=== PATIENT | female | born 1980 | race Caucasian/White ===

== ENCOUNTER 2025-01-08 17:26 | Emergency (ER) | payer MEDICAID, SELFPAY ==
[2025-01-08 17:38] VITALS: BP 136/90; PULSE 94; RESP 22; TEMP 36.7; O2SAT 96; BMI 27.4
--- NOTE | 2025-01-08 17:51 | XRR_ITS ---
PROCEDURE INFORMATION: Exam: XR Chest Exam date and time: 01/08/2025 5:53 PM Age: 44 years old Clinical indication: Angina and cough; Additional info: Shortness of breath TECHNIQUE: Imaging protocol: Radiologic exam of the chest. Views: 1 view. COMPARISON: No relevant prior studies available. FINDINGS: Lungs: Unremarkable. No consolidation. Pleural spaces: Unremarkable. No pleural effusion. No pneumothorax. Heart/Mediastinum: Unremarkable. No cardiomegaly. Bones/joints: Unremarkable. XR/XR chest 1V portable [id number] IMPRESSION: No acute findings.
[2025-01-08] MEDS: methylPREDNISolone sod succ 125 mg/2 mL INJ IVP (18:17)
--- NOTE | 2025-01-08 18:17 | ED_ITS ---
HPI - SOB/Dyspnea 2 General: Chief Complaint: Shortness of Breath/Dyspnea Stated Complaint: trouble breathing Time Seen by Provider: 01/08/25 17:49 History of Present Illness: HPI Narrative: 44-year-old female with a history of ast hma/COPD, lupus and tobacco dependence who presents to the emergency room with worsening cough and shortness of breath. She has quite a bit of wheeze on presentation. Tachypneic. Not requiring oxygen. She says she just moved here and she does not have a primary to follow- up with yet. No chest pain. No altered mental status. No nausea or vomiting. No known fevers. Related Data Previous Rx's ?Medication ?Instructions ?Recorded azithromycin 250 mg tablet See Rx Instructions PO .COM PLEX #6 01/08/25 (Zithromax Z-Igor) tabs prednisone 20 mg tablet 60 mg (3 x 20 mg) PO DAILY # 20 tabs 01/08/25 Allergies Allergy/AdvReac Type Severity Reaction Status Date / Time divalproex sodium (From Allergy Unknown Verified 01/08/25 17:44 Depakote) ketorolac (From Toradol) Allergy Unknown Verified 01/08/25 17:44 morphine Allergy Unknown Verified 01/08/25 17:44 Penicillins Allergy Unknown Verified 01/08/25 17:44 hydrocodone AdvReac ADR-Itching Verified 01/08/25 17:44 Review of Systems 2 Narrative: Constitutional symptoms: Negative except as documented in HPI. Skin symptoms: Negative except as documented in HPI. Eye symptoms: Negative except as documented in HPI. ENMT symptoms: Negative except as documented in HPI. Respiratory symptoms: Negative except as documented in HPI. Cardiovascular symptoms: Negative except as documented in HPI. Gastrointestinal symptoms: Negative except as documented in HPI. Genitourinary symptoms: Negative except as documented in HPI. Musculoskeletal symptoms: Negative except as documented in HPI. Neurologic symptoms: Negative except as documented in HPI. Psychiatric symptoms: Negative except as documented in HPI. Endocrine symptoms: Negative except as documented in HPI. Physical Exam 2 Narrative: EXAM NARRATIVE: General: Alert, no acute distress. Skin: Warm, dry. Head: Normocephalic, atraumatic. Neck: Supple, trachea midline. Eye: Extraocular movements are intact. Ears, nose, mouth and throat: Oral mucosa moist. Cardiovascular: Regular rate and rhythm, Normal peripheral perfusion. Respiratory: coarse, scattered wheeze, mild increased wob. tachypnea, breath sounds are equal, Symmetrical chest wall expansion. Gastrointestinal: Soft, Nontender, Non distended Musculoskeletal: Normal ROM, no deformity. Neurological: Alert and oriented, No focal neurological deficit observed. Psychiatric: Cooperative, appropriate mood & affect. Course 2 Vital Signs: Vital signs: Vital Signs Temperature 98.0 F 01/08/25 17:38 Pulse Rate 85 01/08/25 18:51 Respiratory Rate 22 H 01/08/25 18:39 Blood Pressure 121/70 01/08/25 18:47 Pulse Oximetry 97 01/08/25 18:47 Oxygen Delivery Me thod Room Air 01/08/25 18:47 MDM - SOB/Dyspnea Medical Decision Making Differential diagnosis for patient with shortness of breath includes but is not limited to and based on the above HPI, review of systems and physical exam: Pneumonia. Bronchitis. Asthma or COPD with acute exacerbation. Acute coronary syndrome / [place]. Pulmonary embolism. Anxiety. Congestive heart failure. Viral infections including influenza and Covid-19. Atrial fibrillation. Anxiety. Pleural effusion. Pneumothorax. Orders placed to evaluate differential diagnosis based on the above differential, HPI and physical exam Chest x-ray: Flattened diaphragms/hyperexpansion. No obvious focal infiltrates.. This was reviewed and interpreted by myself the emergency room physician. I also reviewed the radiology report. Lab Review: Laboratory results were reviewed and interpreted by myself the emergency room physician. No leukocytosis. No anemia. No renal failure. proBNP is negative. I reviewed the patient's medical record. Reexamination: Patient has improved wheeze. Improved work of breathing. No oxygen requirements. Assessment and plan: COPD with acute exacerbation ?Solu-Medrol and 2 updrafts. - Discharged home - Discussed plan with patient. Answered any questions. - Evaluation and treatment of this problem were appropriate in the emergency setting. Lab Data 01/08/25 18:13 01/08/25 18:13 Labs/Radiology: Radiology Impressions Chest X-Ray 01/08/25 17:51 IMPRESSION: No acute findings. Laboratory Results WBC 8.80 10^3/uL (3.29-11.43) 01/08/25 18:13 RBC 4.47 10^6/uL (3.85-5.65) 01/08/25 18:13 Hgb 14.40 g/dL (11.27-16.99) 01/08/25 18:13 Hct 39.0 % (36-47) 01/08/25 18:13 MCV 87.2 fl (85-98) 01/08/25 18:13 MCH 32.2 pg (27-33) 01/08/25 18:13 MCHC 36.9 g/dL (30-55) 01/08/25 18:13 RDW 13.4 % (12.1-15.1) 01/08/25 18:13 Plt Count 281 10^3/cmm (157-399) 01/08/25 18:13 MPV 10.4 fL (7.4-10.4) 01/08/25 18:13 Neut % (Auto) 64.2 % 01/08/25 18:13 Lymph % (Auto) 26.7 % 01/08/25 18:13 [place] % (Auto) 8.5 % 01/08/25 18:13 Eos % (Auto) 0.0 % 01/08/25 18:13 Baso % (Auto) 0.3 % 01/08/25 18:13 Neut # (Auto) 5.64 10^3/uL (1.8-7.7) 01/08/25 18:13 Lymph # (Auto) 2.4 10^3/uL (0.8-4.8) 01/08/25 18:13 [place] # (Auto) 0.8 10^3/uL (0.2-0.9) 01/08/25 18:13 Eos # (Auto) 0.0 10^3/uL (0.0-0.8) 01/08/25 18:13 Baso # (Auto) 0.0 10^3/uL (0.0-0.1) 01/08/25 18:13 Nucleated RBC % (auto) 0 % 01/08/25 18:13 Nucleated RBCs # 0.0 /100WBC 01/08/25 18:13 Sodium 142 mmol/L (136-145) 01/08/25 18:13 Potassium 4.1 mmol/L (3.5-5.1) 01/08/25 18:13 Chloride 107 mmol/L (98-107) 01/08/25 18:13 Carbon Dioxide 26 mmol/L (22-29) 01/08/25 18:13 Anion Gap 13.1 (5-19) 01/08/25 18:13 BUN 6 mg/dL (6-20) 01/08/25 18:13 Creatinine 0.5 mg/dL (0.5-0.9) 01/08/25 18:13 GFR Calculation 134.0 mL/min (90-130) H 01/08/25 18:13 Glucose 87 mg/dL (65-115) 01/08/25 18:13 Calculated Osmolality 291 mOsm/kg (285-295) 01/08/25 18:13 Lactic Acid 1.5 mmol/L (0.5-2.2) 01/08/25 18:13 Calcium 9.0 mg/dL (8.5-10.5) 01/08/25 18:13 Total Bilirubin 0.3 mg/dL (0.15-1.2) 01/08/25 18:13 AST 12 U/L (0-32) 01/08/25 18:13 ALT 11 U/L (0-33) 01/08/25 18:13 Alkaline Phosphatase 55 U/L (35-105) 01/08/25 18:13 NT-Pro-B Natriuret Pep 123 pg/mL (0-125) 01/08/25 18:13 Total Protein 6.4 g/dL (6.6-8.7) L 01/08/25 18:13 Albumin 3.8 g/dL (3.5-5.2) 01/08/25 18:13 Globulin 2.6 g/dL (1.3-4.6) 01/08/25 18:13 All radiology interpretation(s) finalized by discharge Discharge Plan Discharge Patient Disposition: Home Clinical Impression: COPD with acute exacerbation Condition: Stable Prescriptions: New azithromycin [Zithromax Z-Igor] 250 mg tablet See Rx Instructions .ROUTE .COMPLEX Qty: 6 0RF Rx Instructions: For 250 mg dose pack: take 500 mg today (day 1), then 250 mg for 4 days (days 2-5) prednisone 20 mg tablet 60 mg PO DAILY Qty: 20 0RF Rx Instructions: 3 tabs (60 mg) x 3 days. 2 tabs (40 mg) x 3 days. 1 tab (20 mg) x 3 days. 1/2 tab (10 mg) x 4 days Discharge Orders: Discharge ED (Routine); Ordered 01/08/25 Ordered By: Zuleyka Lovell Patient Instructions: COPD (Chronic Obstructive Pulmonary Disease) (ED), Opioid Safety, Pain Management Activity Restrictions/Additional Instructions: Thank you for choosing [facility] for your healthcare needs today. You have been screened and evaluated and felt safe for discharge. Health conditions do change or evolve sometimes and as such it is important that you follow up with your Primary Doctor to be re checked, 3-5 days is a general good time frame for follow up. You are always welcome to return to the ED for re assessment if your symptoms are worsening or you have new concerns Print Language: Swazi Coding Level of Care Code ED Traffic Rate Clerk for Bri Mcadams
[2025-01-08 18:20] LABS: Basophils % 0.3 %; Lymphocytes # 2.4 10^3/uL (0.8-4.8); Lymphocytes % 26.7 %; Mean Corpuscular HGB Conc 36.9 g/dL (30-55); Mean Corpuscular Hemoglobin 32.2 pg (27-33); Mean Corpuscular Volume 87.2 fl (85-98); Mean Platelet Volume 10.4 fL (7.4-10.4); Monocytes # 0.8 10^3/uL (0.2-0.9); Monocytes % 8.5 %; Neutrophils # 5.64 10^3/uL (1.8-7.7); Neutrophils % 64.2 %; Nucleated Red Blood Cells % 0 %; Platelet Count 281 10^3/cmm (157-399); Red Blood Count 4.47 10^6/uL (3.85-5.65); Red Cell Distribution Width 13.4 % (12.1-15.1)
[2025-01-08 18:35] LABS: Lactic Sepsis W/Reflex 1.5 mmol/L (0.5-2.2)
[2025-01-08] MEDS: ipratropium-albuterol 3 mL Neb INHALATION (18:38)
[2025-01-08] MEDS: albuterol 2.5 mg/3 mL Neb INHALATION (18:38)
[2025-01-08 18:39] VITALS: PULSE 78; RESP 22; O2SAT 97
[2025-01-08 18:46] LABS: Alanine Aminotransferase 11 U/L (0-33); Albumin Level 3.8 g/dL (3.5-5.2); Alkaline Phosphatase 55 U/L (35-105); Anion Gap 13.1 (5-19); Aspartate Amino Transferase 12 U/L (0-32); Blood Urea Nitrogen 6 mg/dL (6-20); Carbon Dioxide 26 mmol/L (22-29); Chloride 107 mmol/L (98-107); Creatinine Clr Calc Pharmacy 140.1933; Globulin 2.6 g/dL (1.3-4.6); Glucose 87 mg/dL (65-115); NT Pro B Type Natriuretic Pept 123 pg/mL (0-125); Osmolality Calculated 291 mOsm/kg (285-295); Potassium 4.1 mmol/L (3.5-5.1); Sodium 142 mmol/L (136-145); Total Bilirubin 0.3 mg/dL (0.15-1.2); Total Protein 6.4 g/dL (6.6-8.7)
[2025-01-08 18:47] VITALS: BP 121/70; PULSE 85; O2SAT 97
[2025-01-08 18:51] VITALS: PULSE 85
[2025-01-08 18:54] LABS: Slide Review Slide Review Perform
[2025-01-08 19:32] VITALS: BP 125/85; PULSE 85; O2SAT 98
== END 2025-01-08 19:33 | disposition home or self-care (01) ==
PROVIDERS: Emergency Provider Emergency Medicine
DX: J44.1 Chronic obstructive pulmonary disease with (acute) exacerbation (principal); M32.9 Systemic lupus erythematosus, unspecified; Z87.891 Personal history of nicotine dependence
CPT/HCPCS: 71045; 80053; 83605; 83880; 85025; 94640; 96374; 99285; J2919; J7613; J9999

== ENCOUNTER 2025-01-20 08:13 | Oncology outpatient (recurring) (ONCR) | payer MEDICAID, SELFPAY ==
[2025-01-20 09:44] LABS: Basophils # 0.1 10^3/uL (0.0-0.1); Basophils % 0.4 %; Hematocrit 46.8 % (36-47); Lymphocytes # 1.9 10^3/uL (0.8-4.8); Lymphocytes % 10.2 %; Mean Corpuscular HGB Conc 37.2 g/dL (30-55); Mean Corpuscular Hemoglobin 31.9 pg (27-33); Mean Corpuscular Volume 85.7 fl (85-98); Mean Platelet Volume 10.2 fL (7.4-10.4); Monocytes # 0.8 10^3/uL (0.2-0.9); Monocytes % 4.5 %; Neutrophils # 15.46 10^3/uL (1.8-7.7); Neutrophils % 83.2 %; Nucleated Red Blood Cells % 0 %; Platelet Count 319 10^3/cmm (157-399); Red Blood Count 5.46 10^6/uL (3.85-5.65); Red Cell Distribution Width 13.1 % (12.1-15.1); White Blood Count 18.59 10^3/uL (3.29-11.43)
[2025-01-20 10:06] LABS: Alanine Aminotransferase 28 U/L (0-33); Albumin Level 4.3 g/dL (3.5-5.2); Alkaline Phosphatase 57 U/L (35-105); Anion Gap 17.4 (5-19); Aspartate Amino Transferase 17 U/L (0-32); Blood Urea Nitrogen 13 mg/dL (6-20); Carbon Dioxide 25 mmol/L (22-29); Chloride 97 mmol/L (98-107); Creatinine Clr Calc Pharmacy 131.2219; Ferritin 213 ng/mL (15-150); Globulin 2.8 g/dL (1.3-4.6); Glomerular Filtration Rate 108.6 mL/min (90-130); Glucose 87 mg/dL (65-115); Iron 114 ug/dL (37-145); Lactate Dehydrogenase 126 U/L (135-214); Osmolality Calculated 279 mOsm/kg (285-295); Percent Saturation 35.1 % (20-50); Potassium 4.4 mmol/L (3.5-5.1); Sodium 135 mmol/L (136-145); Total Bilirubin 0.5 mg/dL (0.15-1.2); Total Iron Binding Capacity 324 mcg/dl; Total Protein 7.1 g/dL (6.6-8.7); Unsaturated Iron Binding 210 ug/dL (112-347)
[2025-01-23 12:44] LABS: Erythropoietin 3.4 mIU/mL (2.6-18.5)
== END 2025-01-26 23:59 | disposition home or self-care (01) ==
PROVIDERS: Visit Provider Internal Medicine
DX: D75.1 Secondary polycythemia (principal); M32.9 Systemic lupus erythematosus, unspecified; J44.9 Chronic obstructive pulmonary disease, unspecified; J82.83 Eosinophilic asthma; Z90.89 Acquired absence of other organs
CPT/HCPCS: 36415; 80053; 82668; 82728; 83540; 83550; 83615; 85025; 86140; 99204

== ENCOUNTER 2025-02-21 12:03 | Emergency (ER) | payer MEDICAID, SELFPAY ==
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
--- OUTSIDE RECORDS SUMMARY | 2025-02-21 12:11 | XMS_ITS | Patient Health Record ---
Author Organization [facility] Address [address] [place], [place] [address] Care Team Providers Care Government Sales Manager Name Role Phone [facility] Primary Care Pr ovider Unavailable Lizy Bojorquez Unavailable [phone] Allergies Allergen (clinical drug ingredient) Drug/Non Drug Allergy documented on EMR Reaction Allergy Type Onset Date Status Keflex anaphylaxis Drug Allergy Activ e Reason For Referral No Information Medications Medication SIG (Take, Route, Frequency, Duration) Notes Start Date End Date Status Prazosin HCl 1 MG 1 capsule Orally qd for 30 days 05/05/2016 Active Xanax 2 MG 1 tablet Orally Twic e a day for 30 days 05/05/2016 Active Venlafaxine HCl 75 MG 1 tablet with food Orally Twice a day for 30 days 05/05/2016 Active hydrOXYzine HCl 50 MG 1 tablet as needed Orally every 6 hrs Not-Taking Gemfibrozil 600 MG 1 tablet Orally Twic e a day for 30 day(s) 04/07/2016 Active Melatonin 3 MG 1 tablet at bedtime as needed with food Orally Once a day Not-Taking Gabapentin 300 MG 1 capsule Orally Thr ee times a day Not-Taking traZODone HCl 150 MG 1 tablet at bedtime as needed Orally Once a day for 30 days Not-Taking Xanax 2 MG 1/2 tablet Orally Tw ice a day for 30 days 12/20/2015 Not-Taking VESIcare 5 MG 1 tablet Orally Once a day Active Meloxicam 15 MG 1 tablet Orally Once a day for 30 day(s) 04/06/2016 Active chlorproMAZINE HCl 50 MG 1 tablet Orally 1 bid, 2 q hs for 30 days 05/05/2016 Active Zofran 8 MG 1 tablet Orally Once a day for 30 day(s) 05/05/2016 Active FLUoxetine HCl 20 MG 1 capsule in the morning Orally Once a day for 30 days Not-Taking Promethazine HCl 25 MG 1 tablet as neede d Orally every 6 hrs for 30 days Active Haloperidol 2 MG 1 tablet Orally four times a day for 30 days Not-Taki ng clonazePAM 1 MG 1 tablet Orally thre e times a day for 30 days 11/03/2015 Not-Taki ng Mirtazapine 45 MG 1 tablet before bedt rose in the evening Orally Once a day for 30 days 05/05/2016 Active Social History Tobacco Use: Social History Observation Description Date Details (start date - stop date) Current Smoker NA - NA Tobacco Use (OLD): Question Answer Notes Are you a: current smoker How often do you smoke cigarettes? every day How many cigarettes a day do you smoke? 21-30 How soon after you wake up do you smoke your fir st cigarette? within 5 min Are you interested in quitting? Not ready to landen t Additional Findings: Tobacco User Chain smoker Problems Problem Type SNOMED Code ICD Code Onset Dates Problem Status W/U Status Risk Notes Problem 805454753 Tobacco use (Z72.0) Active confirmed Problem 802104514 Hypertriglycerid emia (E78.1) Active confirmed Problem 18033280 Hypertension (I10) Active confirmed Problem 43771622 Neck pain (M54.2) Active confirmed Problem 754869753 Back pain (M54.9) Active confirmed Problem 56874144 Fibromyalgia (M79.7) Active confirmed Problem 67552003 Bipolar disorder (F31.9) Active confirmed Problem 74882266 PTSD (post-traum atic stress disorder) (F43.10) Active confirmed Problem 853792240 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) Active confirmed Problem 206336185 Endometriosis (N80.9) Active confirme d Problem 130318428 Unspecified mood [affective] disorder (F39) Active confirmed Plan Of Treatment No Information Insurance Providers Payer Name Payer Address Payer Phone Subscriber Number Group Number Insured Name Patient Relationship to Insured Coverage Start Date Coverage End Date [facility] MEDICA[facility] [id number] [address] [place] [phone] [id number] Jennifer Church Self - patient is the insured 6 Medications Administered Medication Instructions Date of Administration Dosage Notes Depo-Provera 150 mg/mL 10/28/2015 150 mg Medical (General) History Medical History History ICD Code endometriosis fibromyalgia OA osteoporosis PTSD htn borderline personality disorder Surgical History Surgery Date(Month/Year) tonsillectomy 1982 Hospitalization History Reason Date(Month/Year) mental 08/2015
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
--- OUTSIDE RECORDS SUMMARY | 2025-02-21 12:11 | XMS_ITS | Encounter Summary ---
Author Organization [facility] Address [address] [place] [address] Care Team Providers Care Car Ferry Master Name Role Phone Jennifer Millan MD Primary Care Provider [phone] Reason for Visit * Reason Onset Date Comments Question 09/10/2023 Encounter Details Date Type Department Care Team (Late st Contact Info) Description 09/10/2023 Telephone [facility] Pulmonology-[facility] Jeff[place] [address] [place] [address] Call, [address] NP [address] [place] [address] Question Social History Tobacco Use Types Packs/Day Years Used Date Smoking Tobacco: Every Day Cigarettes 2 32 Passive Smoke Exposure: Past Smokeless Tobacco: Never Comments:Started around age 10. Alcohol Use Standard Drinks/Week Comments Not Currently 0 (1 standard drink = 0.6 oz [...] on file documented as of this encounter Miscellaneous Notes * Telephone Encounter - Luisito Pebbles Padgett - 09/10/2023 2:07 PM CST [facility] Call Center [address] Call (Provider) MESSAGE Pt returning call to staff. Letting them know that she is only using room air with her concentrator. Does not have oxygen. Would like to have actual oxygen tanks [facility] Senior Brand Manager: REANNA DarnellR K LEADER documented in this encounter Plan of Treatment Upcoming Encounters Date Type Department Care Team (Late st Contact Info) Description 02/24/2025 3:00 PM CDT Confidential [facility] Psychiatry- [place] [address] [place] [address] Yandel Torrez MD [address] [facility] [address] [place] [address] 03/12/2025 11:30 AM CDT Video Visit [facility] Pulmonology [address] [place] [address] Samina Pdeerson, SADDLE AND SIDE WIRE STITCHER [address] [place] [address] 06/29/2025 11:00 AM TRACK LEADER Telephone Check Up [facility] Gastroenterology- [place] [address] [place] [address] Nani Chavarria, PERSONAL SERVICE WORKERS [address] [facility] [address] [place] [address] documented as of this encounter Visit Diagnoses Not on filedocumented in this encounter Care Teams Car Ferry Master Relationship Specialty Start Date End Date Jennifer Millan MD [address] [facility] [address] [place] [address] PCP - General Internal Medicine 10/22/23 11/22/23 documented as of this encounter
--- OUTSIDE RECORDS SUMMARY | 2025-02-21 12:11 | XMS_ITS | Encounter Summary ---
Author Organization [facility] Address [address] [place] [address] Care Team Providers Care Valet Cashier Name Role Phone Unavailable Primary Care Provider Unavailabl e Reason for Visit * Reason Onset Date Comments Pharmacy Change 02/06/2025 Encounter Details Date Type Department Care Team (Late st Contact Info) Description 02/06/[address] [facility] Psychiatry- [address] [place] [address] Yandel Torrez MD [address] [place] [address] Pharmacy Change Social History Tobacco Use Types Packs/Day Years [...] encounter Miscellaneous Notes * Telephone Encounter - Shavon Mckinley - 02/06/2025 10:53 AM CDT Can you please send all my scripts starting next month to the [facility] on [address] [place] please in [facility] thank you having issues with this one down here Arnie will pick them up documented in this encounter Plan of Treatment Upcoming Encounters Date Type Department Care Team (Late st Contact Info) Description 02/24/2025 3:[address] [facility] Psychiatry- [place] [address] [facility] [facility] [address] [place] [address] Yandel Torrez MD [address] [facility] [address] [place] [address] 03/12/2025 11:30 AM CDT Video Visit [facility] Pulmonology [address] [place] [address] [place] [address] Samina Pederson, PATTERN LAYOUT WORKER [address] [place] [address] 06/29/2025 11:00 AM SHIPPING POINT INSPECTOR Telephone Check Up [facility] Gastroenterology- [place] [address] [place] [address] Nani Chavarria, MARKETING TRAINEE [address] [facility] [address] [place] [address] documented as of this encounter Visit Diagnoses Not on filedocumented in this encounter
--- OUTSIDE RECORDS SUMMARY | 2025-02-21 12:11 | XMS_ITS | Encounter Summary ---
Author Organization [facility] Address [address] [place] [address] Care Team Providers Care Tint Layer Name Role Phone Unavailable Primary Care Provider Unavailabl e Encounter Details Date Type Department Care Team (Late st Contact Info) Description 11/10/2024 Telephone [facility] [place] [address] [facility] [address] [place] [address] Katheryn Bynum MD [address] [employer] [address] [place] [address] Social History Tobacco Use Types Packs/Day Years [...] encounter Miscellaneous Notes * Telephone Encounter - Gloria Small RN - 11/10/2024 10:34 AM CDT ----- Message from Ally sent at 11/10/2024 10:23 AM CDT ----- LVT pt Pt called - stating she has changed providers now to [facility]. And stated she needed somewhere closer since it is hard to make drive to [facility]. Pt stated she needs all medical records sent to that facility. I did go ahead and get her over to Medical Records Department but here is Fax number to [facility] if you need it: FAX: [phone]. +++++++++++++++++++ Noted. Will let LVT know above. Med records will need to take care of record release. documented in this encounter Plan of Treatment Upcoming Encounters Date Type Department Care Team (Late st Contact Info) Description 02/24/2025 3:00 PM CDT Confidential [facility] Psychiatry- [place] [address] [address] [place] [address] Yandel Torrez MD [address] [facility] [address] [place] [address] 03/12/2025 11:30 AM CDT Video Visit [facility] Pulmonology [address] [place] [address] Samina Pederson APRN [address] [place] [address] 06/29/2025 11:00 AM IT SECURITY ENGINEER Telephone Check Up [facility] Gastroenterology- [place] [address] [facility] [address] [place] [address] Nani Chavarria, GLEN [address] [facility] [address] [place] [address] documented as of this encounter Visit Diagnoses Not on filedocumented in this encounter
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
[2025-02-21 12:21] VITALS: BP 154/99; PULSE 84; RESP 18; TEMP 36.7; O2SAT 98; BMI 36.2
[2025-02-21 12:48] LABS: Hematocrit 40.6 % (36-47); Hemoglobin 15.00 g/dL (11.27-16.99); Mean Corpuscular HGB Conc 36.9 g/dL (30-55); Mean Corpuscular Hemoglobin 32.6 pg (27-33); Mean Corpuscular Volume 88.3 fl (85-98); Nucleated Red Blood Cells % 0 %; Platelet Count 306 10^3/cmm (157-399); Red Blood Count 4.60 10^6/uL (3.85-5.65); White Blood Count 9.26 10^3/uL (3.29-11.43)
[2025-02-21 12:57] LABS: HCG, Serum Qual Negative (Negative)
[2025-02-21 13:05] LABS: Alanine Aminotransferase 20 U/L (0-33); Albumin Level 4.0 g/dL (3.5-5.2); Alkaline Phosphatase 63 U/L (35-105); Anion Gap 16.0 (5-19); Aspartate Amino Transferase 16 U/L (0-32); Blood Urea Nitrogen 6 mg/dL (6-20); Calcium 9.1 mg/dL (8.5-10.5); Carbon Dioxide 22 mmol/L (22-29); Chloride 104 mmol/L (98-107); Creatinine Clr Calc Pharmacy 161.1673; Globulin 2.8 g/dL (1.3-4.6); Glucose 80 mg/dL (65-115); Lipase 25 U/L (13-60); Osmolality Calculated 283 mOsm/kg (285-295); Potassium 4.0 mmol/L (3.5-5.1); Sodium 138 mmol/L (136-145); Total Protein 6.8 g/dL (6.6-8.7)
--- NOTE | 2025-02-21 13:27 | CTR_ITS ---
PROCEDURE INFORMATION: Exam: CT Abdomen And Pelvis With Contrast Exam date and time: 02/21/2025 1:45 PM Age: 44 years old Clinical indication: Abdominal pain; Generalized; Prior surgery; Surgery date: 6+ months; Surgery type: Gb; Additional info: Abd pain TECHNIQUE: Imaging protocol: Computed tomography of the abdomen and pelvis with contrast. Radiation optimization: All CT scans at this facility use at least one of these dose optimization techniques: automated exposure control; mA and/or kV adjustment per patient size (includes targeted exams where dose is matched to clinical indication); or iterative reconstruction. Contrast material: OMNI 350; Contrast volume: 100 ml; Contrast route: INTRAVENOUS (IV); COMPARISON: CR (CHEST, ) 01/08/2025 5:53 PM RADIATION DOSE METRICS: Total DLP (mGy-cm): 923.97 FINDINGS: Lungs: Visualized portions of the lungs are clear. No effusions. Liver: Unremarkable. No mass. Gallbladder and biliary ducts: Gallbladder is surgically absent. Pancreas: Normal. No ductal dilation. Spleen: Normal. No splenomegaly. Adrenal glands: Normal. No mass. Kidneys and ureters: Normal. No hydronephrosis. Stomach and bowel: Unremarkable. No obstruction. No mucosal thickening. Appendix: No evidence of appendicitis. Intraperitoneal space: Unremarkable. No free air. No significant fluid collection. Vasculature: Unremarkable. No abdominal aortic aneurysm. Lymph nodes: Unremarkable. No enlarged lymph nodes. Urinary bladder: Unremarkable as visualized. Reproductive: The uterus is surgically absent. Bones/joints: There are mild degenerative changes of the spine. Soft tissues: Unremarkable. CT/CT abdomen pelvis w con* [id number] IMPRESSION: No acute abnormality. Postop changes of cholecystectomy and hysterectomy.
--- NOTE | 2025-02-21 13:35 | CTR_ITS ---
PROCEDURE INFORMATION: Exam: CT Head Without Contrast Exam date and time: 02/21/2025 1:42 PM Age: 44 years old Clinical indication: Dizziness; Additional info: Dizzy TECHNIQUE: Imaging protocol: Computed tomography of the head without contrast. Radiation optimization: All CT scans at this facility use at least one of these dose optimization techniques: automated exposure control; mA and/or kV adjustment per patient size (includes targeted exams where dose is matched to clinical indication); or iterative reconstruction. COMPARISON: No relevant prior studies available. RADIATION DOSE METRICS: Total DLP (mGy-cm): 1097.48 FINDINGS: Brain: No focal abnormal density within the brain. The owens-white matter differentiation is maintained. No evidence of a large territorial infarct. Hyperacute ischemic change may not be seen on the initial CT scan. No intraparenchymal hemorrhage. No subdural or epidural hematoma or fluid collection. Cerebral ventricles: The ventricular and sulcal pattern is within normal limits. The ventricles are midline in position. No mass effect or midline shift. Paranasal sinuses: The visualized portion of the paranasal sinuses are clear. Mastoid air cells: The mastoid air cells are clear. Bones: The calvarium is intact. Soft tissues: The overlying soft tissues appear unremarkable. The globes appear symmetric. Vasculature: Peripheral atherosclerotic plaque along the intracranial segment of the right and left internal carotid artery. CT/CT head wo con* [id number] IMPRESSION: No acute findings within the brain.
--- NOTE | 2025-02-21 13:36 | W.ED.ABDPA2 ---
HPI - Abdominal Pain General: Chief Complaint: Abdominal Pain Stated Complaint: dizzy / abd pain Time Seen by Provider: 02/21/25 13:23 Source: patient Mode of arrival: ambulatory Limitations: no limitations History of Present Illness: 44-year-old female who states that she has been having abdominal pains going on for 1 to 2 weeks states been a sharp pain in and diffuse abdomen with some pain radiating to her back. States she is also just felt weak along with some dizziness. She denies any vomiting or diarrhea denies any fevers denies any worse or improving factors. Associated Symptoms: Reports nausea; Denies chills, diarrhea, dysuria, fever(s) and vomiting Related Data Home Medications ?Medication ?Instructions ?Recorded ?Confirmed albuterol sulfate 90 mcg/actuation 2 puff inhalation Q6H PRN 01/20/25 02/21/25 aerosol inhaler (Ventolin HFA) Shortness Of Breath budesonide-formoterol HFA 160 1 puff inhalation DAILY 01/20/25 02/21/25 mcg-4.5 mcg/actuation aerosol inhaler (Symbicort) cariprazine 4.5 mg capsule 4.5 mg PO DAILY 01/20/25 02/21/25 (Vraylar) dextroamphetamine-amphetamine ER 30 mg PO QAM 01/20/25 02/21/25 30 mg 24hr capsule,extend release fremanezumab-vfrm 225 mg/1.5 mL 225 mg SUBCUT Q30D 01/20/25 02/21/25 subcutaneous auto-injector (Ajovy) lorazepam 2 mg tablet 2 mg PO TID 01/20/25 02/21/25 paroxetine HCl 40 mg tablet 40 mg PO DAILY 01/20/25 02/21/25 promethazine 25 mg tablet 25 mg PO Q8H PRN Nausea 01/20/25 02/21/25 tiotropium bromide 1.25 2 puff inhalation DAILY 01/20/25 02/21/25 mcg/actuation mist for inhalation (Spiriva Respimat) tizanidine 4 mg tablet 4 mg PO QID PRN Spasms 01/20/25 02/21/25 ubrogepant 100 mg tablet (Ubrelvy) 100 mg PO PRN PRN Migraine Headache 01/20/25 02/21/25 acetaminophen 500 mg tablet 1,000 mg PO Q6H PRN Pain 02/21/25 02/21/25 dextroamphetamine-amphetamine 10 10 mg PO QPM 02/21/25 02/21/25 mg tablet dicyclomine 20 mg tablet 20 mg PO QID PRN Abdominal Pain 02/21/25 02/21/25 pantoprazole 20 mg tablet,delayed 20 mg PO DAILY 02/21/25 02/21/25 release Previous Rx's ?Medication ?Instructions ?Recorded metoclopramide HCl 10 mg tablet 10 mg PO Q6H PRN nausea and 02/21/25 (Reglan) vomiting #20 tabs Allergies Allergy/AdvReac Type Severity Reaction Status Date / Time divalproex sodium (From Allergy Unknown Verified 01/20/25 08:16 Depakote) ketorolac (From Toradol) Allergy Unknown Verified 01/20/25 08:16 morphine Allergy Unknown Verified 01/20/25 08:16 Penicillins Allergy Unknown Verified 01/20/25 08:16 hydrocodone AdvReac ADR-Itching Verified 01/20/25 08:16 Review of Systems Const: Denies: fever(s), chills, body aches or change in appetite Eyes: Denies: blurry vision or eye discomfort ENMT: Denies: throat pain or dental pain Card: Denies: chest pain Resp: Denies: dyspnea GI: Reports: abdominal pain and nausea; Denies: vomiting or diarrhea : Denies: dysuria Musc: Denies: neck pain or back pain Skin/Breast: Denies: rash Neuro: Reports: dizziness [facility] ED PFSH: Social History Smoking and tobacco/nicotine status: unknown if used tobacco/nicotine Physical Exam Const: COMMON NORMALS: no acute distress, patient oriented x3 and healthy appearing HENMT: COMMON NORMALS: normocephalic and atraumatic HEAD & SCALP: normocephalic and atraumatic Eye: COMMON NORMALS: conjunctivae normal CONJUNCTIVA: Yes conjunctivae normal Neck/C-Spine: COMMON NORMALS: full ROM and supple Chest: COMMONS NORMALS: normal inspection of the chest Resp: COMMON NORMALS: normal respiratory effort, No retractions, No use of accessory muscles and clear to auscultation bilaterally AUSCULTATION: clear to auscultation bilaterally Cardio: COMMON NORMALS: regular rate, regular rhythm and No murmurs present (Cardio) RATE: regular rate RHYTHM: regular rhythm GI: COMMON NORMALS: Normal to inspection, nondistended, normoactive bowel sounds present, Soft to palpation and no masses PALPATION: Yes Soft to palpation OTHER: diffuse mild tenderness Extremity: COMMON NORMALS: normal to inspection and full ROM Neuro: COMMON NORMALS: patient oriented x3, moves all extremities and no focal motor deficits Psych: COMMON NORMALS: mental status grossly normal, Normal thought process present and cooperative THOUGHT PROCESS: Normal thought process present Skin: COMMON NORMALS: no rashes or lesions noted and no wounds GENERAL SKIN EXAM: no rashes or lesions noted Course Vital Signs: Vital signs: Vital Signs Temperature 98.1 F 02/21/25 12:21 Pulse Rate 77 02/21/25 15:43 Respiratory Rate 16 02/21/25 15:43 Blood Pressure 115/83 02/21/25 15:43 Pulse Oximetry 96 02/21/25 15:43 Oxygen Delivery Me thod Room Air 02/21/25 14:44 MDM - Abdominal Pain Medical Decision Making Patient presents here with abdominal pain CT blood work here is negative patient stable for discharge follow-up PCP return if worsening Medical Records I reviewed the patient's medical records. Lab Data I reviewed the patient's lab results. 02/21/25 12:36 02/21/25 12:36 Labs/Radiology: Radiology Impressions Abdomen/Pelvis CT 02/21/25 13:27 IMPRESSION: No acute abnormality. Postop changes of cholecystectomy and hysterectomy. Head CT 02/21/25 13:35 IMPRESSION: No acute findings within the brain. Laboratory Results WBC 9.26 10^3/uL (3.29-11.43) 02/21/25 12:36 RBC 4.60 10^6/uL (3.85-5.65) 02/21/25 12:36 Hgb 15.00 g/dL (11.27-16.99) 02/21/25 12:36 Hct 40.6 % (36-47) 02/21/25 12:36 MCV 88.3 fl (85-98) 02/21/25 12:36 MCH 32.6 pg (27-33) 02/21/25 12:36 MCHC 36.9 g/dL (30-55) 02/21/25 12:36 RDW 13.8 % (12.1-15.1) 02/21/25 12:36 Plt Count 306 10^3/cmm (157-399) 02/21/25 12:36 MPV 10.9 fL (7.4-10.4) H 02/21/25 12:36 Neut % (Auto) 61.3 % 02/21/25 12:36 Lymph % (Auto) 29.7 % 02/21/25 12:36 [place] % (Auto) 7.6 % 02/21/25 12:36 Eos % (Auto) 0.1 % 02/21/25 12:36 Baso % (Auto) 0.4 % 02/21/25 12:36 Neut # (Auto) 5.68 10^3/uL (1.8-7.7) 02/21/25 12:36 Lymph # (Auto) 2.8 10^3/uL (0.8-4.8) 02/21/25 12:36 [place] # (Auto) 0.7 10^3/uL (0.2-0.9) 02/21/25 12:36 Eos # (Auto) 0.0 10^3/uL (0.0-0.8) 02/21/25 12:36 Baso # (Auto) 0.0 10^3/uL (0.0-0.1) 02/21/25 12:36 Nucleated RBC % (auto) 0 % 02/21/25 12:36 Nucleated RBCs # 0.0 /100WBC 02/21/25 12:36 Sodium 138 mmol/L (136-145) 02/21/25 12:36 Potassium 4.0 mmol/L (3.5-5.1) 02/21/25 12:36 Chloride 104 mmol/L (98-107) 02/21/25 12:36 Carbon Dioxide 22 mmol/L (22-29) 02/21/25 12:36 Anion Gap 16.0 (5-19) 02/21/25 12:36 BUN 6 mg/dL (6-20) 02/21/25 12:36 Creatinine 0.5 mg/dL (0.5-0.9) 02/21/25 12:36 GFR Calculation 134.0 mL/min (90-130) H 02/21/25 12:36 Glucose 80 mg/dL (65-115) 02/21/25 12:36 Calculated Osmolality 283 mOsm/kg (285-295) L 02/21/25 12:36 Calcium 9.1 mg/dL (8.5-10.5) 02/21/25 12:36 Total Bilirubin 0.3 mg/dL (0.15-1.2) 02/21/25 12:36 AST 16 U/L (0-32) 02/21/25 12:36 ALT 20 U/L (0-33) 02/21/25 12:36 Alkaline Phosphatase 63 U/L (35-105) 02/21/25 12:36 Total Protein 6.8 g/dL (6.6-8.7) 02/21/25 12:36 Albumin 4.0 g/dL (3.5-5.2) 02/21/25 12:36 Globulin 2.8 g/dL (1.3-4.6) 02/21/25 12:36 Lipase 25 U/L (13-60) 02/21/25 12:36 HCG, Qual Negative (Negative) 02/21/25 12:36 Urine Color Yellow (Yellow) 02/21/25 14:01 Urine Appearance Clear (CLEAR) 02/21/25 14:01 Urine pH 6.5 (5-7) 02/21/25 14:01 Ur Specific [place] 1.033 (1.005-1.030) H 02/21/25 14:01 Urine Protein Negative (Negative) 02/21/25 14:01 Urine Glucose (UA) Negative (Normal) 02/21/25 14:01 Urine Ketones Negative (Negative) 02/21/25 14:01 Urine Blood Negative (Negative) 02/21/25 14:01 Urine Nitrate Negative (Negative) 02/21/25 14:01 Urine Bilirubin Negative (Negative) 02/21/25 14:01 Urine Urobilinogen 0.2 mg/dL (Negative) 02/21/25 14:01 Ur Leukocyte Esterase Negative (Negative) 02/21/25 14:01 Urine RBC 0-2 /hpf (0-2) 02/21/25 14:01 Urine WBC 0-5 /hpf (0-5) 02/21/25 14:01 Ur Squamous Epith Cells 0-5 /hpf (0-5) 02/21/25 14:01 Amorphous Sediment Not Reportable 02/21/25 14:01 Urine Bacteria None seen /hpf (NONE) 02/21/25 14:01 Hyaline Casts 0-4 /lpf H 02/21/25 14:01 All radiology interpretation(s) finalized by discharge Discharge Plan Discharge Patient Disposition: Home Clinical Impression: Abdominal pain Condition: Stable Prescriptions: New metoclopramide HCl [Reglan] 10 mg tablet 10 mg PO Q6H PRN (Reason: nausea and vomiting) Qty: 20 0RF No Action tizanidine 4 mg tablet 4 mg PO QID PRN (Reason: Spasms) lorazepam 2 mg tablet 2 mg PO TID promethazine 25 mg tablet 25 mg PO Q8H PRN (Reason: Nausea) albuterol sulfate [Ventolin HFA] 90 mcg/actuation HFA aerosol inhaler 2 puff inhalation Q6H PRN (Reason: Shortness Of Breath) paroxetine HCl 40 mg tablet 40 mg PO DAILY dextroamphetamine-amphetamine 30 mg capsule,extended release 24hr 30 mg PO QAM budesonide-formoterol [Symbicort] 160-4.5 mcg/actuation HFA aerosol inhaler 1 puff inhalation DAILY Vraylar 4.5 mg capsule 4.5 mg PO DAILY Spiriva Respimat 1.25 mcg/actuation mist 2 puff inhalation DAILY Ubrelvy 100 mg tablet 100 mg PO PRN PRN (Reason: Migraine Headache) Ajovy Autoinjector 225 mg/1.5 mL auto-injector 225 mg SUBCUT Q30D dextroamphetamine-amphetamine 10 mg tablet 10 mg PO QPM acetaminophen 500 mg Tablet 1,000 mg PO Q6H PRN (Reason: Pain) pantoprazole 20 mg tablet,delayed release (DR/EC) 20 mg PO DAILY dicyclomine 20 mg tablet 20 mg PO QID PRN (Reason: Abdominal Pain) Discharge Orders: Discharge ED (Routine); Ordered 02/21/25 Ordered By: Odalys Miguel Referrals: Montana Alvarez MD [Physician, General Surgery] - 4-7 days Discharge Diet: Advance as tolerated Discharge Activity: Resume usual activity Patient Instructions: Abdominal Pain (ED) Print Language: French Coding Level of Care Code ED Transplant Registered Nurse for [facility]
[2025-02-21] MEDS: iohexol 350 mg/mL 500 mL Btl (per mL) IV (13:46)
[2025-02-21] MEDS: HYDROmorphone 0.5 MG/0.5 ML INJ 1 MG IVP (14:02)
[2025-02-21] MEDS: ondansetron 2 mg/ML SDV 2 mL 4 MG IVP (14:03)
[2025-02-21 14:37] LABS: Glucose Urine UA Negative (Normal); Nitrate Urine Negative (Negative)
[2025-02-21 14:42] LABS: Add Urine Microscopic? YES
[2025-02-21 14:44] VITALS: BP 115/69; PULSE 79; RESP 16; O2SAT 95
[2025-02-21 14:44] LABS: Specific Gravity, Urine 1.033 (1.005-1.030)
[2025-02-21] MEDS: diphenhydrAMINE 50 mg/mL SDV 1mL 25 MG IVP (15:09)
[2025-02-21] MEDS: metoclopramide 5 mg/mL SDV 2 mL IVP (15:10)
[2025-02-21 15:43] VITALS: BP 115/83; PULSE 77; RESP 16; O2SAT 96
--- NOTE | 2025-02-25 14:27 | PC.NURSE ---
General Surgery referral sent.
== END 2025-02-21 15:42 | disposition home or self-care (01) ==
PROVIDERS: Emergency Provider Emergency Medicine
DX: R10.9 Unspecified abdominal pain (principal)
CPT/HCPCS: 36415; 70450; 74177; 80053; 81001; 83690; 84703; 85025; 96374; 96375; 99285; J1171; J1200; J2405; J2765; J7030; J8597

== ENCOUNTER 2025-03-19 14:46 | Oncology outpatient (recurring) (ONCR) | payer MEDICAID, SELFPAY ==
[2025-03-19 16:35] LABS: CALR Exon 9 Mutation NOT DETECTED (NOT DETECTED); JAK2 Exon 12 Mutation NOT DETECTED (NOT DETECTED); JAK2 V617 Block Specimen ID blood; JAK2 V617 Clinical Indication polycythemia; MPL Exon 10 Mutation NOT DETECTED (NOT DETECTED); Specimen Source blood
== END 2025-03-29 23:59 | disposition home or self-care (01) ==
PROVIDERS: Visit Provider Internal Medicine
DX: D75.1 Secondary polycythemia (principal); J45.909 Unspecified asthma, uncomplicated; J82.83 Eosinophilic asthma; R11.0 Nausea; R52 Pain, unspecified; Z71.6 Tobacco abuse counseling; Z87.891 Personal history of nicotine dependence
CPT/HCPCS: 36415; 81219; 81270; 81279; 81339; 99213

== ENCOUNTER 2025-03-31 13:17 | Outpatient (CLI) | payer MEDICAID, SELFPAY | END 2025-03-31 13:18 | disposition home or self-care (01) | PROVIDERS: PCP Family Medicine; Visit Provider Surgery | DX: R10.9 Unspecified abdominal pain (principal); R03.0 Elevated blood-pressure reading, without diagnosis of hypertension | CPT/HCPCS: 83630; 83993; 87177; 87209; 99204 ==

== ENCOUNTER → 2025-04-15 13:51 | Outpatient (BNVA) | payer MEDICAID, SELFPAY | PROVIDERS: PCP Family Medicine; Visit Provider Surgery | DX: Z09 Encounter for follow-up examination after completed treatment for conditions other than malignant neoplasm (principal) | CPT/HCPCS: 99212 ==

== ENCOUNTER → 2025-04-20 11:16 | Outpatient (BNVA) | payer MEDICAID, SELFPAY | PROVIDERS: Referring Provider Internal Medicine; Visit Provider Internal Medicine Rheumatology | DX: M41.86 Other forms of scoliosis, lumbar region (principal); M51.361 Other intervertebral disc degeneration, lumbar region with lower extremity pain only; M53.3 Sacrococcygeal disorders, not elsewhere classified; R79.89 Other specified abnormal findings of blood chemistry; M13.80 Other specified arthritis, unspecified site; Z79.899 Other long term (current) drug therapy; Z71.85 Encounter for immunization safety counseling | CPT/HCPCS: 36415; 72100; 72202; 80076; 82565; 83520; 85025; 85651; 86140; 86160; 86162; 86235; 86255; 86376; 86704; 86803; 86812; 87340; 99204 ==

== ENCOUNTER 2025-05-06 19:58 | Emergency (ER) | payer MEDICAID, SELFPAY ==
[2025-05-06 20:04] VITALS: BP 136/85; PULSE 92; RESP 14; TEMP 36.8; O2SAT 99; BMI 36.3
--- NOTE | 2025-05-06 20:27 | XRR_ITS ---
PROCEDURE INFORMATION: Exam: XR Chest Exam date and time: 05/06/2025 8:29 PM Age: 44 years old Clinical indication: Other: Possible sepsis TECHNIQUE: Imaging protocol: Radiologic exam of the chest. Views: 1 view. COMPARISON: CR (CHEST, ) 01/08/2025 5:53 PM FINDINGS: Lungs: Lungs are hyperinflated. There are no focal consolidations demonstrated significant pleural effusions. Pleural spaces: See Lungs finding. Heart/Mediastinum: Unremarkable. No cardiomegaly. Bones/joints: Unremarkable. There is prominent right pericardial phrenic and left epicardial fat XR/XR chest 1V portable [id number] IMPRESSION: Hyperinflation no consolidation.
--- NOTE | 2025-05-06 20:37 | CTR_ITS ---
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 Radiation optimization: All CT scans at this facility use at least one of these dose optimization techniques: automated exposure control; mA and/or kV adjustment per patient size (includes targeted exams where dose is matched to clinical indication); or iterative reconstruction. Contrast material: OMNI 350; Contrast volume: 100 ml; Contrast route: INTRAVENOUS (IV); COMPARISON: CT head wo con* [id number] 02/21/2025 1:42 PM RADIATION DOSE METRICS: Total DLP (mGy-cm): 298.27 FINDINGS: Salivary glands: Normal. Glands are normal in size. Teeth: Multiple caries and periapical lucencies compatible with stated history of odontogenic infection, bony erosion probably most conspicuous at the posterior-most right maxillary molar. Pharynx: Unremarkable. No significant tonsillar enlargement. Larynx: Unremarkable. Epiglottis is normal. Thyroid: Normal. No enlarged or calcified nodules. Trachea: Visualized trachea is unremarkable. Lungs: Unremarkable as visualized. Lymph nodes: Unremarkable. No lymphadenopathy. Bones/joints: See Teeth finding. Soft tissues: Unremarkable. No significant soft tissue swelling. Other findings: No definitive evidence of large fluid collection to suggest well-defined abscess or Giovani's angina. CT/CT neck w con* [id number] IMPRESSION: 1. Multiple caries and periapical lucencies compatible with stated history of odontogenic infection, bony erosion probably most conspicuous at the posterior-most right maxillary molar. 2. No definitive evidence of large fluid collection to suggest well-defined abscess or Giovani's angina.
[2025-05-06 20:49] LABS: Hematocrit 38.7 % (36-47); Hemoglobin 14.50 g/dL (11.27-16.99); Mean Corpuscular HGB Conc 37.5 g/dL (30-55); Mean Corpuscular Hemoglobin 31.9 pg (27-33); Mean Corpuscular Volume 85.2 fl (85-98); Nucleated Red Blood Cells % 0 %; Platelet Count 333 10^3/cmm (157-399); Red Blood Count 4.54 10^6/uL (3.85-5.65); White Blood Count 11.29 10^3/uL (3.29-11.43)
[2025-05-06] MEDS: cefepime 2,000 mg SDV 2000 MG IVP (20:53)
[2025-05-06] MEDS: acetaminophen 1,000 MG/100 ML PIGGYBACK 400 MG IV (20:54)
--- NOTE | 2025-05-06 20:56 | W.ED.DENTAL ---
HPI - Dental/Oral General: Chief complaint: Dental/Oral Stated complaint: Possible med reaction Time Seen by Provider: 05/06/25 20:10 History of Present Illness: 44-year-old female, history of multiple drug allergies, positive autoimmune antibodies, presenting to the emergency department with onset since Sunday of lower facial and dental pain and swelling, has been having dental pain on and off for several weeks prior to this, was seen in urgent care on the sixth and diagnosed with dental infection and started on ciprofloxacin twice daily x 7 days but reports that symptoms have worsened, she feels the swelling in her face and now in her neck, she also reports a fever to 101 at home and intermittent lightheaded dizziness, denies difficulty breathing, denies difficulty swallowing Related Data Home Medications ?Medication ?Instructions ?Recorded ?Confirmed albuterol sulfate 90 mcg/actuation 2 puff inhalation Q6H PRN 01/20/25 05/04/25 aerosol inhaler (Ventolin HFA) Shortness Of Breath budesonide-formoterol HFA 160 1 puff inhalation DAILY 01/20/25 05/04/25 mcg-4.5 mcg/actuation aerosol inhaler (Symbicort) dextroamphetamine-amphetamine ER 30 mg PO QAM 01/20/25 05/04/25 30 mg 24hr capsule,extend release fremanezumab-vfrm 225 mg/1.5 mL 225 mg SUBCUT Q30D 01/20/25 05/04/25 subcutaneous auto-injector (Ajovy) lorazepam 2 mg tablet 2 mg PO TID 01/20/25 05/04/25 paroxetine HCl 40 mg tablet 40 mg PO DAILY 01/20/25 05/04/25 tiotropium bromide 1.25 2 puff inhalation DAILY 01/20/25 05/04/25 mcg/actuation mist for inhalation (Spiriva Respimat) tizanidine 4 mg tablet 4 mg PO QID PRN Spasms 01/20/25 05/04/25 ubrogepant 100 mg tablet (Ubrelvy) 100 mg PO PRN PRN Migraine Headache 01/20/25 05/04/25 acetaminophen 500 mg tablet 1,000 mg PO Q6H PRN Pain 02/21/25 05/04/25 dextroamphetamine-amphetamine 10 10 mg PO QPM 07/26/25 10/06/25 mg tablet benralizumab 30 mg/mL subcutaneous mg SUBCUT 03/19/25 05/04/25 syringe (Fasenra) Previous Rx's ?Medication ?Instructions ?Recorded omeprazole 40 mg capsule,delayed See Rx Instructions PO DAILY #90 04/20/25 release caps folic acid 1 mg tablet 1 mg PO DAILY #30 tabs 04/24/25 ciprofloxacin HCl 500 mg tablet 500 mg PO BID 7 days #14 tabs 05/04/25 clindamycin HCl 150 mg capsule 450 mg (3 x 150 mg) PO Q8H 7 days 05/06/25 (Cleocin HCl) #63 caps Allergies Allergy/AdvReac Type Severity Reaction Status Date / Time cephalexin Allergy Intermediate ALGY-Hives Verified 05/06/25 20:08 escitalopram Allergy Intermediate ALGY-Hives Verified 05/06/25 20:08 orphenadrine Allergy Mild ALGY-Rash Verified 05/06/25 20:08 oxycodone Allergy Mild ALGY-Hives Verified 05/06/25 20:08 divalproex sodium (From Allergy Unknown Verified 05/06/25 20:08 Depakote) ketorolac (From Toradol) Allergy Unknown Verified 05/06/25 20:08 morphine Allergy Unknown Verified 05/06/25 20:08 Penicillins Allergy Unknown Verified 05/06/25 20:08 amitriptyline AdvReac Intermediate swelling Verified 05/06/25 20:08 prednisone AdvReac Intermediate ADR-Confusi Verified 05/06/25 20:08 on pregabalin AdvReac Intermediate ADR-Confusi Verified 05/06/25 20:08 on rizatriptan AdvReac Intermediate ADR-Confusi Verified 05/06/25 20:08 on sulfamethoxazole (From AdvReac Intermediate ADR-Halluci Verified 05/06/25 20:08 Sulfamethoxazole-Trimethoprim) nating trimethoprim (From AdvReac Intermediate ADR-Halluci Verified 05/06/25 20:08 Sulfamethoxazole-Trimethoprim) nating hydrocodone AdvReac ADR-Itching Verified 05/06/25 20:08 methotrexate AdvReac ADR-Vomitin Verified 05/06/25 20:08 g PFSH ED PFSH: Medical History Immunization counseling High risk medication use Inflammatory arthritis Positive antinuclear antibody Basal cell carcinoma (BCC) back of neck and face Fibromyalgia Polyarthralgia History of skin cancer Surgical History History of tonsillectomy History of laparoscopic cholecystectomy History of exploratory laparotomy 2x History of umbilical hernia repair 2x History of hysterectomy Family History Other Heart disease Lung cancer Rheumatoid arthritis Denies family history of Lupus (systemic lupus erythematosus) Diabetes Hypertension Social History Smoking and tobacco/nicotine status: never used tobacco/nicotine Quit status (tobacco/nicotine): considering quitting Female Reproductive History: Spontaneous abortions: No Physical Exam Narrative: EXAM NARRATIVE: Gen: A&Ox4, no acute distress, nontoxic appearing HEENT: Normocephalic, atraumatic, no scleral icterus, external ears normal, moist mucous membranes, there is significant swelling to the bilateral lower face with tenderness to palpation, no crepitus, intraoral exam with very poor dentition, multiple impacted teeth, there does appear to be a focal area of infection to the lower midline gum area, no visible sublingual swelling, no stridor, tolerating secretions, phonating well, mild trismus Neck: Supple, full range of motion,, there is some swelling to the submandibular region and anterior neck, Lungs: No Respiratory distress, Lungs clear to auscultation bilaterally no rales, rhonchi, wheezing CV: Regular rate and rhythm, no murmur, no pitting edema to lower extremities bilaterally Abdomen: Soft, nondistended, nontender to palpation MSK: No joint swelling, FROM all 4 extremities Skin: No rashes, petechiae, lesions. Normal color per patient. Neuro: Alert and oriented, no slurred speech, sensation and strength grossly intact all 4 extremities Psych: Appropriate for situation. Course Reevaluation(s): Reevaluation #1: Patient monitored, no progression of symptoms, labs reassuring, CT showing soft tissue stranding but no deep space neck collection drainable abscess or evidence of Trini's, airway widely patent, will start oral clindamycin, recommend dental evaluation as an outpatient, return precautions discussed prior to discharge Time: 22:21 Vital Signs: Vital signs: Vital Signs Temperature 98.2 F 05/06/25 20:04 Pulse Rate 92 05/06/25 20:04 Respiratory Rate 16 05/06/25 21:50 Blood Pressure 136/85 05/06/25 20:04 Pulse Oximetry 99 05/06/25 20:04 [facility] - Dental/Oral Medical Decision Making 44-year-old female presenting to the emergency department with progressive lower facial swelling and dental infection not improving on Cipro prescribed 2 days ago, on exam patient is afebrile in the ER but reports fever earlier in the day prior to arrival to [facility], she does have lower facial swelling externally as well as some mild submandibular swelling and tenderness, there is no obvious acute airway compromise at this time but I am concerned for possible deep space neck infection or impending Trini's, plan for sepsis evaluation, broad-spectrum antibiotics IV clinda and cefepime, noted penicillin and cephalexin allergies which are nonanaphylactic and relatively low cross-reactivity rates with cefepime given possibility of severe infection risks of inadequate antibiotic treatment outweigh benefits of more narrow spectrum at this time, will closely monitor airway, obtain CT of the neck with contrast to assess for deep space infection or drainable abscess, reassess for disposition, IV Decadron to reduce facial swelling, IV fluids, IV Ofirmev given allergies to NSAIDs and opioids, npo while imaging pending. Lab Data Labs with no leukocytosis, no anemia, normal lactic, normal creatinine 05/06/25 20:41 05/06/25 20:41 Radiology Impressions Chest X-Ray 05/06/25 20:27 IMPRESSION: Hyperinflation no consolidation. Neck CT 05/06/25 20:37 IMPRESSION: 1. Multiple caries and periapical lucencies compatible with stated history of odontogenic infection, bony erosion probably most conspicuous at the posterior-most right maxillary molar. 2. No definitive evidence of large fluid collection to suggest well-defined abscess or Giovani's angina. Laboratory Results WBC 11.29 10^3/uL (3.29-11.43) 05/06/25 20:41 RBC 4.54 10^6/uL (3.85-5.65) 05/06/25 20:41 Hgb 14.50 g/dL (11.27-16.99) 05/06/25 20:41 Hct 38.7 % (36-47) 05/06/25 20:41 MCV 85.2 fl (85-98) 05/06/25 20: MCH 31.9 pg (27-33) 05/06/25 20: MCHC 37.5 g/dL (30-55) 05/06/25 20: RDW 14.1 % (12.1-15.1) 05/06/25 20:41 Plt Count 333 10^3/cmm (157-399) 05/06/25 20: MPV 10.7 fL (7.4-10.4) H 05/06/25 20:41 Neut % (Auto) 67.7 % 05/06/25 20: Lymph % (Auto) 24.2 % 05/06/25 20: Hood % (Auto) 7.3 % 05/06/25 20: Eos % (Auto) 0.0 % 05/06/25 20: Baso % (Auto) 0.4 % 05/06/25 20: Neut # (Auto) 7.65 10^3/uL (1.8-7.7) 05/06/25 20: Lymph # (Auto) 2.7 10^3/uL (0.8-4.8) 05/06/25 20:41 Hood # (Auto) 0.8 10^3/uL (0.2-0.9) 05/06/25 20: Eos # (Auto) 0.0 10^3/uL (0.0-0.8) 05/06/25 20:41 Baso # (Auto) 0.1 10^3/uL (0.0-0.1) 05/06/25 20: Nucleated RBC % (auto) 0 % 05/06/25 20: Nucleated RBCs # 0.0 /100WBC 05/06/25 20:41 PT 13.00 SECONDS (12.1-14.9) 05/06/25 20: INR 0.92 (0.8-1.2) 05/06/25 20: APTT 32.6 SECONDS (23.9-36.7) 05/06/25 20:41 Sodium 140 mmol/L (136-145) 05/06/25 20:41 Potassium 3.9 mmol/L (3.5-5.1) 05/06/25 20:41 Chloride 103 mmol/L (98-107) 05/06/25 20:41 Carbon Dioxide 25 mmol/L (22-29) 05/06/25 20:41 Anion Gap 15.9 (5-19) 05/06/25 20:41 BUN 7 mg/dL (6-20) 05/06/25 20:41 Creatinine 0.6 mg/dL (0.5-0.9) 05/06/25 20:41 GFR Calculation 108.6 mL/min (90-130) 05/06/25 20:41 Glucose 98 mg/dL (65-115) 05/06/25 20:41 Calculated Osmolality 288 mOsm/kg (285-295) 05/06/25 20:41 Lactic Acid 0.6 mmol/L (0.5-2.2) 05/06/25 20:41 Calcium 9.0 mg/dL (8.5-10.5) 05/06/25 20:41 Total Bilirubin 0.9 mg/dL (0.15-1.2) 05/06/25 20:41 AST 16 U/L (0-32) 05/06/25 20:41 ALT 15 U/L (0-33) 05/06/25 20:41 Alkaline Phosphatase 71 U/L (35-105) 05/06/25 20:41 Total Protein 7.1 g/dL (6.6-8.7) 05/06/25 20:41 Albumin 4.2 g/dL (3.5-5.2) 05/06/25 20:41 Globulin 2.9 g/dL (1.3-4.6) 05/06/25 20:41 Procalcitonin 0.04 ng/mL (0-0.5) 05/06/25 20:41 All radiology interpretation(s) finalized by discharge ED provider radiology interpretation(s): CT neck showing multiple periapical lucencies and evidence of superficial infection but no evidence of deep space neck infection or Giovani's or drainable abscess/fluid collection Discharge Plan Discharge Patient Disposition: Home Clinical Impression: Dental caries, Gingival abscess Condition: Stable Prescriptions: New clindamycin HCl [Cleocin HCl] 150 mg capsule 450 mg PO Q8H 7 Days Qty: 63 0RF No Action tizanidine 4 mg tablet 4 mg PO QID PRN (Reason: Spasms) lorazepam 2 mg tablet 2 mg PO TID albuterol sulfate [Ventolin HFA] 90 mcg/actuation HFA aerosol inhaler 2 puff inhalation Q6H PRN (Reason: Shortness Of Breath) paroxetine HCl 40 mg tablet 40 mg PO DAILY dextroamphetamine-amphetamine 30 mg capsule,extended release 24hr 30 mg PO QAM budesonide-formoterol [Symbicort] 160-4.5 mcg/actuation HFA aerosol inhaler 1 puff inhalation DAILY Spiriva Respimat 1.25 mcg/actuation mist 2 puff inhalation DAILY Ubrelvy 100 mg tablet 100 mg PO PRN PRN (Reason: Migraine Headache) Ajovy Autoinjector 225 mg/1.5 mL auto-injector 225 mg SUBCUT Q30D Fasenra 30 mg/mL syringe SUBCUT omeprazole 40 mg capsule,delayed release(DR/EC) See Rx Instructions PO DAILY Qty: 90 1RF Rx Instructions: take 1 capsule in AM 30 minutes before breakfast orally daily; ciprofloxacin HCl 500 mg tablet 500 mg PO BID 7 Days Qty: 14 0RF folic acid 1 mg tablet 1 mg PO DAILY Qty: 30 3RF dextroamphetamine-amphetamine 10 mg tablet 10 mg PO QPM acetaminophen 500 mg Tablet 1,000 mg PO Q6H PRN (Reason: Pain) Discharge Orders: Discharge ED (Routine); Ordered 05/06/25 Ordered By: Francisco Bertrand Referrals: Tate Raman MD [Primary Care Provider, [facility]] Patient Instructions: Patient Portal & Marlena Instructions, Dental Abscess (ED) Activity Restrictions/Additional Instructions: You were seen in the emergency department for a dental infection, your imaging and labs were reassuring that there was no extension of the infection into the deeper or more dangerous parts of your neck, I recommend you take the antibiotics as prescribed, monitor for any progression of symptoms in which case return to the nearest emergency department, otherwise follow-up with a dentist to soon as possible for further evaluation Print Language: Hebrew Coding Level of Care Code ED Fraud Prevention Analyst for Bri Mcadams
[2025-05-06 21:01] LABS: INR 0.92 (0.8-1.2); Prothrombin Time 13.00 SECONDS (12.1-14.9)
[2025-05-06 21:02] LABS: Partial Thromboplastin Time 32.6 SECONDS (23.9-36.7)
[2025-05-06 21:07] LABS: Lactic Sepsis W/Reflex 0.6 mmol/L (0.5-2.2)
[2025-05-06 21:08] LABS: Alanine Aminotransferase 15 U/L (0-33); Albumin Level 4.2 g/dL (3.5-5.2); Alkaline Phosphatase 71 U/L (35-105); Anion Gap 15.9 (5-19); Aspartate Amino Transferase 16 U/L (0-32); Blood Urea Nitrogen 7 mg/dL (6-20); Calcium 9.0 mg/dL (8.5-10.5); Carbon Dioxide 25 mmol/L (22-29); Chloride 103 mmol/L (98-107); Creatinine Clr Calc Pharmacy 134.6491; Globulin 2.9 g/dL (1.3-4.6); Glucose 98 mg/dL (65-115); Osmolality Calculated 288 mOsm/kg (285-295); Potassium 3.9 mmol/L (3.5-5.1); Sodium 140 mmol/L (136-145); Total Protein 7.1 g/dL (6.6-8.7)
[2025-05-06 21:14] LABS: Procalcitonin 0.04 ng/mL (0-0.5)
[2025-05-06 21:16] LABS: Slide Review Slide Review Perform
[2025-05-06] MEDS: iohexol 350 mg/mL 500 mL Btl (per mL) IV (21:31)
[2025-05-06 21:50] VITALS: RESP 16
[2025-05-06] MEDS: fentaNYL 50 mcg/mL INJ 2mL IVP (21:50)
[2025-05-06 22:39] VITALS: BP 114/65; PULSE 74; RESP 18; O2SAT 95
== END 2025-05-06 22:42 | disposition home or self-care (01) ==
PROVIDERS: Emergency Provider Student in an Organized Health Care Education/Training Program; PCP Family Medicine
DX: K02.9 Dental caries, unspecified (principal); K05.20 Aggressive periodontitis, unspecified; Z85.828 Personal history of other malignant neoplasm of skin
CPT/HCPCS: 70491; 71045; 80053; 83605; 84145; 85025; 85610; 85730; 87040; 96365; 96375; 99285; J0131; J0692; J1100; J3010; J3490; J7120

== ENCOUNTER 2025-06-18 13:02 | Oncology outpatient (recurring) (ONCR) | payer MEDICAID, SELFPAY ==
[2025-06-18 13:57] LABS: Alanine Aminotransferase 13 U/L (0-33); Albumin Level 4.0 g/dL (3.5-5.2); Alkaline Phosphatase 68 U/L (35-105); Aspartate Amino Transferase 16 U/L (0-32); Globulin 2.5 g/dL (1.3-4.6); Total Protein 6.5 g/dL (6.6-8.7)
[2025-06-18 14:46] LABS: Hematocrit 42.4 % (36-47); Hemoglobin 15.90 g/dL (11.27-16.99); Mean Corpuscular HGB Conc 37.5 g/dL (30-55); Mean Corpuscular Hemoglobin 31.5 pg (27-33); Mean Corpuscular Volume 84.0 fl (85-98); Nucleated Red Blood Cells % 0 %; Platelet Count 275 10^3/cmm (157-399); Red Blood Count 5.05 10^6/uL (3.85-5.65); White Blood Count 8.11 10^3/uL (3.29-11.43)
[2025-06-18] MEDS: FLU VACC TS2025-26(6MOS UP)/PF 45 MCG/0.5 ML SYRINGE IM (16:52)
== END 2025-06-28 23:59 | disposition home or self-care (01) ==
PROVIDERS: Internal Medicine Rheumatology; PCP Family Medicine; Visit Provider Internal Medicine
DX: D75.1 Secondary polycythemia (principal); J45.909 Unspecified asthma, uncomplicated; J82.83 Eosinophilic asthma; R11.0 Nausea; R52 Pain, unspecified; Z71.6 Tobacco abuse counseling; Z87.891 Personal history of nicotine dependence; R03.0 Elevated blood-pressure reading, without diagnosis of hypertension; J01.00 Acute maxillary sinusitis, unspecified
CPT/HCPCS: 36415; 80076; 82668; 83615; 85025; 85651; 86140; 90471; 90656; 99214